=== PATIENT | male | born 1995 | race Caucasian/White ===

== ENCOUNTER 2021-09-30 23:52 | Emergency (ER) | payer SELFPAY ==
[2021-10-01 00:15] VITALS: BP 140/72
[2021-10-01] MEDS ORDERED: PANTOPRAZOLE 40 MG INJ IV ONE (00:47)
[2021-10-01] MEDS ORDERED: ONDANSETRON 4 MG/2 ML INJ IV ONE (00:47)
[2021-10-01] MEDS ORDERED: SODIUM CHLORIDE 0.9% 1000 ML 1,000 ML IV ONE (00:47)
[2021-10-01 01:46] LABS: BUN/Creatinine Ratio 12; Blood Urea Nitrogen 11 mg/dL (9-20); Calcium 8.8 mg/dL (8.4-10.2); Hemolysis Index 9
[2021-10-01 01:51] LABS: Bilirubin,Urine NEG (Negative); Blood,Urine MOD (Negative); Color,Urine Yellow (Yellow); RBC,Urine < 1.0 /HPF (0.0-6.0); Urobilinogen,Urine < 2.0 mg/dL (<2.0)
[2021-10-01 01:57] LABS: INR 1.03 (0.87-1.13)
[2021-10-01 02:29] LABS: Basophils # (Auto) 0.1 K/mm3 (0.0-0.1); Eosinophils # (Auto) 0.4 K/mm3 (0.0-0.4); Eosinophils % (Auto) 6.8 % (0.0-4.3); Hematocrit 38.2 % (35.5-45.6); Hemoglobin 13.1 gm/dl (11.8-15.2); Lymphocytes # (Auto) 2.6 K/mm3 (1.2-5.4); Lymphocytes % (Auto) 40.1 % (13.4-35.0); Mean Corpuscular HGB Conc 34 % (32-34); Mean Corpuscular Volume 92 fl (84-94); Monocytes # (Auto) 0.5 K/mm3 (0.0-0.8); Monocytes % (Auto) 7.3 % (0.0-7.3); Platelet Count 244 K/mm3 (140-440); Red Blood Count 4.17 M/mm3 (3.65-5.03); Red Cell Distribution Width 12.7 % (13.2-15.2)
--- NOTE | 2021-10-01 03:55 | Cat Scan Report ---
CT OF THE ABDOMEN AND PELVIS WITHOUT CONTRAST INDICATION / CLINICAL INFORMATION: Abdominal pain. TECHNIQUE: All CT scans at this location are performed using CT dose reduction for ALARA by means of automated exposure control. COMPARISON: None available. FINDINGS: ABDOMEN: The gallbladder is contracted and not well seen. The liver, spleen, bile ducts, pancreas, ad renal glands, kidneys and bowel demonstrate no significant abnormality. No adenopathy is seen. The deanna ng bases are clear. PELVIS: The distal ureters and urinary bladder are normal. The prostate gland and seminal vesicles ar e unremarkable. A normal appendix is present and there is no evidence of diverticulitis. No abnormal mass or fluid collection is seen. I do not identify a hernia. No acute osseous abnormality is present . IMPRESSION: No acute abnormality is identified. Signer Name: Mk Roberts MD Signed: 10/01/2021 3:50 AM Workstation Name: [id number]
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
== END 2021-10-01 04:40 | disposition home or self-care (01) ==
LOC: ED 23:52
DX: K52.9 Noninfective gastroenteritis and colitis, unspecified (principal); F17.200 Nicotine dependence, unspecified, uncomplicated
CPT/HCPCS: 36415; 74176; 80048; 81001; 82150; 83690; 85025; 85610; 96361; 96374; 96375; 99284; C9113; J2405; J7030; Q0162